=== PATIENT | female | born 1985 ===

== ENCOUNTER 2017-11-29 20:35 | Outpatient (REF) | payer MEDICAID, SELFPAY | END 2017-11-29 20:55 | LOC: NCHCN 20:35 | PROVIDERS: PCP Nurse Practitioner Family; Visit Provider Nurse Practitioner Family | DX: L08.82 Omphalitis not of newborn (principal) | CPT/HCPCS: 87070; 87205 ==

== ENCOUNTER 2018-12-26 13:19 | Outpatient (REF) | payer MEDICAID, SELFPAY ==
--- NOTE | 2018-12-26 10:00 | PAPFT_PTH ---
PATIENT: Des Condon LOC: [facility] U#:[id number] AGE/SX: 33/F ROOM: RE12/26/[address]: Lore Mchugh : 1985 BED: DIS: 12/26/2018 SPEC #: [id number] RECD: 12/27/18 12:53 STATUS: [place] REQ #: [id number] STEPHAN: 12/26/18 10:[address]: Lore Schrader DEPT: [facility] Cytology RECD BY: Evelyn Christopher ENTERED: 12/27/18 12:53 SP TYPE: PAPFT OTHR DR: Rossana Goyal Tissues: 1 - CX/ENDOCX FOR PAP SMEARS Procedures: PAP THIN PREP/[facility] Screening HPV DNA PROBE Comments: [id number] (CHLAMYDIA/GC)
[2018-12-26 22:16] LABS: HCT 38.8 % (36.0-46.0); HGB 12.7 g/dL (12.0-15.5); Mean Corp. HGB Concentration 32.7 g/dL (32.0-36.0); Mean Corpuscular Hemoglobin 29.2 pg (27.0-33.0); Mean Corpuscular Volume 89.2 fL (80-95); Mean Platelet Volume 9.8 fL (8.0-11.0); Platelet Count 464 x1000/uL (130-400); RBC 4.35 m/cumm (4.00-5.20); RBC Distribution Width 12.9 % (11.7-14.6); White Blood Cell Count 9.78 k/cumm (4.4-10.8)
[2018-12-26 23:02] LABS: ALT 22 U/L (14-59); AST 16 U/L (15-37); Albumin 3.9 g/dL (3.4-5.0); Alkaline Phosphatase 109 U/L (46-116); Anion Gap 11.1 mmol/L (3-11); BUN 6 mg/dL (7-18); Bilirubin, Total 0.4 mg/dL (0.2-1.0); CO2 24.9 mmol/L (21.0-32.0); CREATININE 0.78 mg/dL (0.55-1.02); Calcium 9.4 mg/dL (8.5-10.1); Calculated LDL 119 mg/dL; Chloride 105 mmol/L (98-107); Cholesterol 174 mg/dL (50-200); Glucose 86 mg/dL (70-100); HDL Cholesterol 45 mg/dL (40-60); Potassium 4.3 mmol/L (3.5-5.1); Sodium 141 mmol/L (136-145); TSH 2.11 uIU/mL (0.36-3.74); Total Protein 7.1 g/dL (6.4-8.2); Triglyceride 54 mg/dL (30-150)
[2018-12-26 23:07] LABS: Hemoglobin A1C 5.4 % (4.5-6.2)
[2018-12-28 14:33] LABS: Chlamydia Result Negative; GC Result Negative; Specimen Description SEE COMMENTS
== END 2018-12-26 13:39 ==
LOC: NCHCN 13:19
PROVIDERS: PCP Nurse Practitioner Family; Visit Provider Nurse Practitioner Family
DX: R53.83 Other fatigue (principal); E66.9 Obesity, unspecified; Z11.3 Encounter for screening for infections with a predominantly sexual mode of transmission; Z12.4 Encounter for screening for malignant neoplasm of cervix; Z11.51 Encounter for screening for human papillomavirus (HPV); Z00.00 Encounter for general adult medical examination without abnormal findings
CPT/HCPCS: 80053; 80061; 85027; 87491; 87591; 88142; 83036; 84443; 87624

== ENCOUNTER 2020-09-10 17:49 | Outpatient (REF) | payer MEDICAID, SELFPAY ==
[2020-09-12 12:56] LABS: COVID-19 RT-PCR UVMMC Result Negative (Negative)
== END 2020-09-10 17:50 | disposition home or self-care (01) ==
LOC: NCHCN 17:49
PROVIDERS: PCP Nurse Practitioner Family; Visit Provider Nurse Practitioner Community Health
DX: J02.9 Acute pharyngitis, unspecified (principal); Z20.822 Contact with and (suspected) exposure to COVID-19
CPT/HCPCS: U0003

== ENCOUNTER 2025-02-05 09:57 | Outpatient (REF) | payer OTHER, SELFPAY ==
[2025-02-05 15:12] LABS: Abs Immature Grans 0.03 10^3/uL (0.0-0.06); HCT 40.7 % (36.0-46.0); HGB 13.5 g/dL (11.2-15.7); Immature Grans % 0.3 %; MCH 30.3 pg (27.0-33.0); MCHC 33.2 % (32.0-36.0); MCV 91 fL (80-95); MPV 9.8 fL (8.0-11.0); Platelet Count 426 10^3/uL (130-400); RBC 4.46 10^6/uL (3.93-5.22); RDW 13.2 % (11.7-14.6); RDW-SD 44.2 fL; WBC 10.06 10^3/uL (4.4-10.8)
[2025-02-05 15:27] LABS: TSH (W/Ref FT4) 1.98 uIU/mL (0.55-4.78)
[2025-02-05 15:30] LABS: Hemoglobin A1C 5.4 % (<5.7)
[2025-02-05 15:51] LABS: ALT 19 U/L (10-49); AST 15 U/L (<34); Albumin 4.5 g/dL (3.2-5.0); Alkaline Phosphatase 92 U/L (46-116); Anion Gap 7.8 mmol/L (3-11); BUN 8 mg/dL (9-23); Bilirubin, Total 0.50 mg/dL (0.2-1.2); CO2 23.2 mmol/L (20.0-31.0); Calcium 9.3 mg/dL (8.3-10.6); Chloride 109 mmol/L (98-107); Cholesterol 179 mg/dL (<200); Glucose 98 mg/dL (74-106); HDL Cholesterol 49 mg/dL (>40); Potassium 4.2 mmol/L (3.5-5.1); Sodium 140 mmol/L (136-145); Total Protein 7.5 g/dL (5.7-8.2)
== END 2025-02-05 09:58 | disposition home or self-care (01) ==
LOC: NCHCN 09:57
PROVIDERS: PCP Nurse Practitioner Family; Visit Provider Nurse Practitioner Family
DX: Z13.1 Encounter for screening for diabetes mellitus (principal); R53.83 Other fatigue; E66.9 Obesity, unspecified; Z13.220 Encounter for screening for lipoid disorders
CPT/HCPCS: 80053; 80061; 83036; 84443; 85025